=== PATIENT | female | born 1960 | race Caucasian/White ===

== ENCOUNTER 2022-11-08 00:35 | Inpatient (IN) | payer MEDICAID ==
[~2022-11-08] VITALS: Ht 165.1 cm; Wt 77.6 kg
[2022-11-08] MEDS ORDERED: HALOPERIDOL 5 MG TABLET PO PRN (03:45)
[2022-11-08] MEDS ORDERED: PNEUMOCOCCAL VACCINE POLYVALENT 0.5 ML VIAL [PPSV23] IM. ONE (04:15)
[2022-11-08 04:50] VITALS: BP 118/77
[2022-11-08 08:36] VITALS: BP 109/72
[2022-11-08] MEDS: FUROSEMIDE 20 MG TABLET PO SCH (09:17)
[2022-11-08] MEDS: ALBUTEROL SULFATE HFA 90 MCG/PUFF 8 GM INHALER IH PRN ×3 (09:18→23:05)
[2022-11-08] MEDS ORDERED: MAGNESIUM HYDROXIDE SUSPENSION 30 ML UDCUP PO PRN (13:45)
[2022-11-08] MEDS ORDERED: PETROLATUM,WHITE 28 GM JELLY TP PRN (13:45)
[2022-11-08] MEDS ORDERED: GuaiFENesin/D-METHORPHAN [SUGAR-FREE] 200-20MG/10 ML SYRUP UDCUP PO PRN (13:45)
[2022-11-08] MEDS ORDERED: CloNIDine HCL 0.1 MG TABLET PO PRN (13:45)
[2022-11-08] MEDS ORDERED: LOPERAMIDE HCL 2 MG CAPSULE PO PRN (13:45)
[2022-11-08] MEDS ORDERED: ONDANSETRON HCL 4 MG TABLET PO PRN (13:45)
[2022-11-08] MEDS ORDERED: DOCUSATE SODIUM 100 MG CAPSULE PO PRN (13:45)
[2022-11-08] MEDS ORDERED: NICOTINE 14 MG/24 HOUR PATCH TD PRN (13:45)
[2022-11-08] MEDS: IBUPROFEN 400 MG TABLET PO PRN ×2 (14:06→23:05)
[2022-11-08] MEDS: ACETAMINOPHEN 325 MG TABLET PO PRN (14:39)
[2022-11-08] MEDS: LORazepam 2 MG TABLET PO PRN (14:40)
[2022-11-08 20:03] VITALS: BP 120/70
[2022-11-08] MEDS: QUEtiapine FUMARATE 100 MG TABLET PO SCH (20:30)
[2022-11-09] MEDS: FUROSEMIDE 20 MG TABLET PO SCH (08:07)
[2022-11-09 08:19] VITALS: BP 101/61
[2022-11-09 08:44] LABS: BASOPHILS % (AUTO) 0.2 % (0.0-2.0); EOSINOPHILS % (AUTO) 3.3 % (1.0-6.0); HEMATOCRIT 39.7 % (36-46); HEMOGLOBIN 13.6 g/dL (12.0-16.0); LYMPHOCYTES # (AUTO) 1.4 K/uL (1.0-4.8); LYMPHOCYTES % (AUTO) 30.2 % (22.0-44.0); MEAN CORPUSCULAR HEMOGLOBIN 29.8 pg (26.0-34.0); MEAN CORPUSCULAR HGB CONC 34.2 G/dL (31.0-37.0); MEAN CORPUSCULAR VOLUME 87 fL (80-100); MONOCYTES # (AUTO) 0.4 K/uL (0.1-1.0); MONOCYTES % (AUTO) 9.3 % (2.0-9.0); NEUTROPHILS # (AUTO) 2.6 K/uL (1.8-7.7); PLATELET COUNT (AUTO) 180 K/uL (150-450); RED BLOOD CELL COUNT(AUTO) 4.56 MIL/uL (4.00-5.20); RED CELL DISTRIBUTION WIDTH 13.7 % (11.5-14.5)
[2022-11-09 09:05] LABS: HEMOGLOBIN A1C 5.3 % (3.8-5.6)
[2022-11-09 09:15] LABS: ALANINE AMINOTRANSFERASE 18 U/L (12-78); ALBUMIN 3.8 g/dL (3.4-5.0); ALKALINE PHOSPHATASE 70 U/L (46-116); ANION GAP 6 mmol/L (8-16); ASPARTATE AMINOTRANSFERASE 11 U/L (15-37); BILIRUBIN,TOTAL 0.8 mg/dL (0.1-1.0); CALCIUM, TOTAL 9.1 mg/dL (8.8-10.5); CARBON DIOXIDE 31 mmol/L (22-29); CHLORIDE 105 mmol/L (98-107); GLOMERULAR FILTR. RATE CALC > 60 mL/min (>60); GLUCOSE,RANDOM 90 mg/dL (70-110); POTASSIUM 4.2 mmol/L (3.5-5.1); SODIUM SERUM 142 mmol/L (136-145); THYROID STIMULATING HORMONE 1.02 uIU/mL (0.36-3.74); TOTAL PROTEIN, SERUM 6.4 g/dL (6.4-8.2); UREA NITROGEN, BLOOD 14 mg/dL (7-18)
[2022-11-09 09:40] LABS: CHOL/HDL RATIO 3.5 (3.9-5.7); CHOLESTEROL 180 mg/dL (131-200); HDL CHOLESTEROL 51 mg/dL (40-60); LDL CHOL (CALC.) 111 mg/dL (0-130); TRIGLYCERIDES 92 mg/dL (15-150)
[2022-11-09] MEDS: IBUPROFEN 400 MG TABLET PO PRN ×3 (10:01→21:09)
[2022-11-09] MEDS: LORazepam 2 MG TABLET PO PRN (10:15)
[2022-11-09 20:09] VITALS: BP 101/60
[2022-11-09] MEDS: QUEtiapine FUMARATE 100 MG TABLET PO SCH (21:09)
[2022-11-09] MEDS: ZOLPIDEM TARTRATE 10 MG TABLET PO PRN (22:21)
[2022-11-10] MEDS: ACETAMINOPHEN 325 MG TABLET PO PRN ×2 (03:03→12:38)
[2022-11-10 08:08] VITALS: BP 102/68
[2022-11-10] MEDS: FUROSEMIDE 20 MG TABLET PO SCH (08:36)
[2022-11-10] MEDS: ALBUTEROL SULFATE HFA 90 MCG/PUFF 8 GM INHALER IH PRN ×2 (09:07→20:23)
[2022-11-10] MEDS: LORazepam 2 MG TABLET PO PRN ×2 (12:48→17:08)
[2022-11-10] MEDS: IBUPROFEN 400 MG TABLET PO PRN (15:52)
[2022-11-10 20:00] VITALS: BP 108/71
[2022-11-10] MEDS: MAG HYDROX/AL HYDROX/SIMETH ES 30 ML SUSPENSION UDCUP PO PRN (20:26)
[2022-11-10] MEDS: QUEtiapine FUMARATE 100 MG TABLET PO SCH (20:26)
[2022-11-10] MEDS: ZOLPIDEM TARTRATE 10 MG TABLET PO PRN (21:34)
[2022-11-11] MEDS: LORazepam 2 MG TABLET PO PRN ×2 (01:54→14:34)
[2022-11-11 08:10] VITALS: BP 114/71
[2022-11-11] MEDS: FUROSEMIDE 20 MG TABLET PO SCH (08:31)
[2022-11-11] MEDS: IBUPROFEN 400 MG TABLET PO PRN (12:48)
[2022-11-11] MEDS: MAG HYDROX/AL HYDROX/SIMETH ES 30 ML SUSPENSION UDCUP PO PRN (18:54)
[2022-11-11] MEDS: QUEtiapine FUMARATE 100 MG TABLET PO SCH (20:31)
[2022-11-11 21:10] VITALS: BP 102/64
[2022-11-12 08:54] VITALS: BP 113/84
[2022-11-12] MEDS: FUROSEMIDE 20 MG TABLET PO SCH (09:13)
[2022-11-12] MEDS: ALBUTEROL SULFATE HFA 90 MCG/PUFF 8 GM INHALER IH PRN (09:19)
[2022-11-12] MEDS: IBUPROFEN 400 MG TABLET PO PRN (10:35)
[2022-11-12] MEDS: LORazepam 2 MG TABLET PO PRN (12:57)
[2022-11-12] MEDS: MAG HYDROX/AL HYDROX/SIMETH ES 30 ML SUSPENSION UDCUP PO PRN (16:03)
[2022-11-12] MEDS ORDERED: ONDANSETRON HCL 4 MG/2 ML VIAL IM PRN (17:45)
[2022-11-12 20:00] VITALS: BP 108/72
[2022-11-12] MEDS: QUEtiapine FUMARATE 100 MG TABLET PO SCH (20:55)
[2022-11-12] MEDS: ZOLPIDEM TARTRATE 10 MG TABLET PO PRN (20:55)
[2022-11-13 08:22] VITALS: BP 111/72
[2022-11-13] MEDS: FUROSEMIDE 20 MG TABLET PO SCH (08:23)
[2022-11-13] MEDS: ALBUTEROL SULFATE HFA 90 MCG/PUFF 8 GM INHALER IH PRN (08:33)
[2022-11-13] MEDS ORDERED: QUET100T PO (09:33)
[2022-11-13] MEDS ORDERED: FURO20 PO (09:33)
[2022-11-13] MEDS: ACETAMINOPHEN 325 MG TABLET PO PRN (09:38)
[2022-11-13] MEDS ORDERED: QUET100T34 PO (11:07)
== END 2022-11-13 15:21 | disposition home or self-care (01) | DRG 751 ==
LOC: B3A 04:16
PROVIDERS: ADMIT Psychiatry & Neurology Child & Adolescent Psychiatry; ATTEND Psychiatry & Neurology Child & Adolescent Psychiatry
DX: F29 Unspecified psychosis not due to a substance or known physiological condition (principal); R45.851 Suicidal ideations; I50.9 Heart failure, unspecified; G47.00 Insomnia, unspecified; J44.9 Chronic obstructive pulmonary disease, unspecified; F19.10 Other psychoactive substance abuse, uncomplicated; Z79.899 Other long term (current) drug therapy; Z63.4 Disappearance and death of family member
CPT/HCPCS: 80053; 80061; 83036; 84443; 85025; 87081; 90732; J3535; Q0162